=== PATIENT | male | born 1960 | race Caucasian/White ===

== ENCOUNTER 2016-08-11 12:30 | Emergency (ER) | payer OTHER ==
[2016-08-11 13:31] LABS: ABSOLUTE BASOPHILS # (AUTO) 0.1 10^3/uL (0.0-0.2); ABSOLUTE EOSINOPHILS # (AUTO) 0.1 10^3/uL (0.0-0.6); ABSOLUTE LYMPHOCYTES (AUTO) 0.8 10^3/uL (0.5-4.7); ABSOLUTE MONOCYTES (AUTO) 0.6 10^3/uL (0.1-1.4); ABSOLUTE NEUT (AUTO) 9.3 10^3/uL (1.7-8.2); BASOPHILS % (AUTO) 0.7 % (0-2); EOSINOPHILS % (AUTO) 0.7 % (0-6); HEMATOCRIT 39.6 % (37.9-51.0); HEMOGLOBIN 13.5 g/dL (13.5-17.0); HGB HCT DIFFERENCE 0.9; LYMPHOCYTES % (AUTO) 7.1 % (13-45); MEAN CORPUSCULAR HEMOGLOBIN 30.9 pg (27.0-33.4); MEAN CORPUSCULAR HGB CONC 34.1 g/dL (32.0-36.0); MEAN CORPUSCULAR VOLUME 91 fl (80-97); MONOCYTES % (AUTO) 5.3 % (3-13); RED BLOOD COUNT 4.37 10^6/uL (4.35-5.55); RED CELL DISTRIBUTION WIDTH 13.4 % (11.5-14.0); SEGMENTED NEUTROPHILS % (AUTO) 86.2 % (42-78); WHITE BLOOD COUNT 10.8 10^3/uL (4.0-10.5)
[2016-08-11 13:48] LABS: ALANINE AMINOTRANSFERASE 123 U/L (21-72); ALBUMIN 3.9 g/dL (3.5-5.0); ALKALINE PHOSPHATASE 64 U/L (38-126); ANION GAP 8 (5-19); ASPARTATE AMINO TRANSFERASE 51 U/L (17-59); BILIRUBIN,DIRECT 0.3 mg/dL (0.0-0.4); BILIRUBIN,TOTAL 0.5 mg/dL (0.2-1.3); BLOOD UREA NITROGEN 21 mg/dL (7-20); CALCIUM 9.1 mg/dL (8.4-10.2); CARBON DIOXIDE 27 mmol/L (22-30); CHLORIDE 109 mmol/L (98-107); CREATINE KINASE 370 U/L (55-170); CREATININE RESULT 0.78 mg/dL (0.52-1.25); GLUCOSE 118 mg/dL (75-110); POTASSIUM 4.3 mmol/L (3.6-5.0); SODIUM 143.7 mmol/L (137-145); TOTAL PROTEIN 6.8 g/dL (6.3-8.2)
[2016-08-11] MEDS ORDERED: IPRATROPIUM/ALBUTEROL 0.5-2.5 MG/3 ML AMPUL NEB ONE (13:49)
[2016-08-11 14:03] LABS: TROPONIN I < 0.012 ng/mL
[2016-08-11] MEDS ORDERED: NORMAL SALINE 1000 ML 1,000 ML IV ONE (14:05)
--- NOTE | 2016-08-11 14:13 | RADIOLOGY REPORT (SQ) ---
EXAM DESCRIPTION: CHEST PA/LAT COMPLETED DATE/TIME: 08/11/2016 2:06 pm REASON FOR STUDY: cough COMPARISON: 03/17/2009 EXAM PARAMETERS: NUMBER OF VIEWS: two views TECHNIQUE: Digital Frontal and Lateral radiographic views of the chest acquired. RADIATION DOSE: NA LIMITATIONS: none FINDINGS: LUNGS AND PLEURA: No opacities, masses or pneumothorax. No pleural effusion. MEDIASTINUM AND HILAR STRUCTURES: No masses or contour abnormalities. HEART AND VASCULAR STRUCTURES: Heart normal size. No evidence for failure. BONES: No acute findings. HARDWARE: None in the chest. OTHER: No other significant finding. IMPRESSION: NO SIGNIFICANT RADIOGRAPHIC FINDING IN THE CHEST. TECHNICAL DOCUMENTATION: JOB ID: [id number] [employer]- All Rights Reserved
[2016-08-11 14:40] LABS: APPEARANCE,URINE CLEAR; BILIRUBIN,URINE NEGATIVE (NEGATIVE); GLUCOSE, URINE NEGATIVE (NEGATIVE); KETONES,URINE NEGATIVE (NEGATIVE); LEUKOCYTE ESTERASE,URINE NEGATIVE (NEGATIVE); NITRITE,URINE NEGATIVE (NEGATIVE); PROTEIN,URINE 30 mg/dL (NEGATIVE); UROBILINOGEN,URINE NEGATIVE mg/dL (<2.0)
--- NOTE | 2016-08-11 15:41 | ER Document Report ---
ED GI/ - General Chief Complaint: Nausea/Vomiting Stated Complaint: NAUSEA/VOMITING Time Seen by Provider: 08/11/16 13:32 Notes: Patient is a 56-year-old male who presents emergency department after nausea, vomiting, lightheadedness at work today. Patient works on a garbage truck he states that he was working getting up and down on the truck when he had a sudden wave of nausea and vomiting 4. No evidence of blood or coffee-ground emesis. After he threw up he stated she felt weak and came to the emergency department. Any headache, head trauma, light sensitivity, sound sensitivity, dizziness, abdominal pain, constipation or diarrhea, difficulty urinating, chest pain, dyspnea. Past medical history. Recently states that he has had a little bit of a head cold but otherwise feeling well. TRAVEL OUTSIDE OF THE [place] IN LAST 30 DAYS: No - Related Data Allergies/Adverse Reactions: No Known Allergies Allergy (Verified 08/11/16 12:56) Home Medications: Current Home Medications Lisinopril/Hydrochlorothiazide [Lisinopril-Hctz 20-25 mg Tab] 1 each PO DAILY [History] Meloxicam [Meloxicam] 15 mg PO DAILY 08/11/16 [History] Past Medical History - Social History Smoking Status: Former Smoker Chew tobacco use (# tins/day): Yes Frequency of alcohol use: Social Drug Abuse: None Family History: Reviewed & Not Pertinent Patient has suicidal ideation: No Patient has homicidal ideation: No - Past Medical History Cardiac Medical History: Reports: Hx Hypertension Renal/ Medical History: Denies: Hx Peritoneal Dialysis - Immunizations Hx Diphtheria, Pertussis, Tetanus Vaccination: No Review of Systems - Review of Systems Constitutional: No symptoms reported EENT: See HPI Cardiovascular: No symptoms reported Respiratory: No symptoms reported Gastrointestinal: See HPI Neurological/Psychological: See HPI -: Yes All other systems reviewed and negative Physical Exam - Vital signs Vitals: Temp Pulse Resp BP Pulse Ox 98 F 65 16 159/89 H 95 08/11/16 12:42 08/11/16 12:42 08/11/16 12:42 08/11/16 12:42 08/11/16 12:42 - Notes Notes: PHYSICAL EXAM GENERAL: Alert, interacts well. HEAD: Normocephalic, atraumatic. EYES: Pupils equal, round, and reactive to light. Extraocular movements intact. ENT: Oral mucosa moist, tongue midline. NECK: Full range of motion. Supple. Trachea midline. LUNGS: Clear to auscultation bilaterally, no wheezes, rales, or rhonchi. No respiratory distress. HEART: Regular rate and rhythm. No murmurs, gallops, or rubs. ABDOMEN: Soft, nondistended, nontender. No guarding, rebound, or rigidity.. Bowel sounds present in all 4 quadrants. EXTREMITIES: Moves all 4 extremities spontaneously. No edema, radial and dorsalis pedis pulses 2/4 bilaterally. No cyanosis. NEUROLOGICAL: Alert and oriented x4. Normal speech. PSYCH: Normal affect, normal mood. SKIN: Warm, dry, normal turgor. No rashes or lesions noted. Course - Re-evaluation Re-evalutation: 08/11/16 19:49 56-year-old male who is hemodynamic stable, no acute distress and afebrile. Orthostatics negative. Patient did receive 1 L of IV fluids. Received nausea medication. Labs within normal limits. Labs are consistent with the fact the patient has been vomiting with mild dehydration. Creatinine kinase mildly elevated but not indicative of rhabdomyolysis. Patient was initially stable for discharge home but upon discharge from her staff patient following up upon anytime he moved. Patient given IM Compazine and Antivert to treat for possible vertigo. reponded well and discharged home - Vital Signs Vital signs: Temp Pulse Resp BP Pulse Ox 97.6 F 60 12 134/82 H 95 08/11/16 23:15 08/11/16 23:15 08/11/16 23:15 08/11/16 23:15 08/11/16 23:15 - Laboratory Result Diagrams: 08/11/16 13:15 08/11/16 13:15 Laboratory results interpreted by wa: 08/11/16 08/11/16 08/11/16 13:15 13:15 14:10 WBC 10.8 H Plt Count 142 L Seg Neutrophils % 86.2 H Lymphocytes % 7.1 L Absolute Neutrophils 9.3 H Chloride 109 H BUN 21 H Glucose 118 H ALT 123 H Creatine Kinase 370 H Urine Protein 30 H Urine Ascorbic Acid 40 H Discharge - Discharge Clinical Impression: Dehydration, Cough Condition: Good Disposition: HOME, SELF-CARE Instructions: Intravenous (IV) Fluids ([facility]), Dehydration ([facility]) Additional Instructions: Please return to the emergency department if your symptoms do not improve after aggressive fluid hydration and rest for the next 24-48 hours. Please return if your urine turned a dark brown/bloody color. Prescriptions: Albuterol Sulfate [Proair HFA Inhalation Aerosol 8.5 gm MDI] 2 puff IH Q4H PRN # 1 mdi PRN Reason: Meclizine HCl 25 mg PO BIDP PRN 10 Days PRN Reason: Ondansetron [Zofran Odt 4 mg Tablet] 1 - 2 tab PO Q4H PRN #15 tab.rapdis PRN Reason: For Nausea/Vomiting Promethazine HCl [Phenergan 25 mg Tablet] 1 - 2 tab PO Q6H PRN #15 tablet PRN Reason: Forms: Elevated Blood Pressure, Return to Work Referrals: ODETTE HOPKINS MD [ACTIVE STAFF] - Follow up in 1 week
[2016-08-11] MEDS ORDERED: ONDANSETRON 4 MG TAB.RAPDIS PO ONE (16:56)
[2016-08-11] MEDS ORDERED: KETOROLAC TROMETHAMINE 60 MG/2 ML SDV IM ONE (17:53)
[2016-08-11] MEDS ORDERED: PROMETHAZINE HCL 25 MG TABLET PO ONE (17:53)
[2016-08-11] MEDS ORDERED: PROCHLORPERAZINE EDISYLATE INJ 10 MG/2 ML VIAL IM ONE (18:38)
[2016-08-11] MEDS ORDERED: MECLIZINE HCL 25 MG TABLET PO ONE (18:49)
[2016-08-11 23:29] VITALS: BP 134/82
--- NOTE | 2016-08-12 10:02 | EKG REPORT ---
SEVERITY:- NORMAL ECG - SINUS RHYTHM : Confirmed by: Raul Lay 12-Aug-2016 10:01:45
== END 2016-08-11 23:15 | disposition home or self-care (01) ==
LOC: ER 12:30
DX: E86.0 Dehydration (principal); R05 Cough; R11.2 Nausea with vomiting, unspecified; R42 Dizziness and giddiness; R53.1 Weakness; Z72.0 Tobacco use; Z76.0 Encounter for issue of repeat prescription; I10 Essential (primary) hypertension
CPT/HCPCS: 93005; 94640; 99284; 96372; 96360; 82553; 36415; 82550; 85025; 80053; 81001; 84484; 71020; 93010; J1885; S0119; J0780; J7030; J7620

== ENCOUNTER 2019-09-05 18:16 | Emergency (ER) | payer OTHER, BC ==
[2019-09-05 18:37] LABS: ABSOLUTE BASOPHILS # (AUTO) 0.1 10^3/uL (0.0-0.2); ABSOLUTE MONOCYTES (AUTO) 0.8 10^3/uL (0.1-1.4); ABSOLUTE NEUT (AUTO) 7.6 10^3/uL (1.7-8.2); BASOPHILS % (AUTO) 0.7 % (0-2); EOSINOPHILS % (AUTO) 0.1 % (0-6); HEMATOCRIT 41.3 % (37.9-51.0); HEMOGLOBIN 14.1 g/dL (13.5-17.0); LYMPHOCYTES % (AUTO) 10.3 % (13-45); MEAN CORPUSCULAR HEMOGLOBIN 30.9 pg (27.0-33.4); MEAN CORPUSCULAR VOLUME 91 fl (80-97); MONOCYTES % (AUTO) 8.2 % (3-13); PLATELET COUNT 161 10^3/uL (150-450); RED BLOOD COUNT 4.55 10^6/uL (4.35-5.55); RED CELL DISTRIBUTION WIDTH 13.4 % (11.5-14.0); SEGMENTED NEUTROPHILS % (AUTO) 80.7 % (42-78); TOTAL CELLS COUNTED % (AUTO) 100 %; WHITE BLOOD COUNT 9.4 10^3/uL (4.0-10.5)
[2019-09-05 19:02] LABS: ALBUMIN 4.3 g/dL (3.5-5.0); ALKALINE PHOSPHATASE 59 U/L (38-126); ANION GAP 8 (5-19); ASPARTATE AMINO TRANSFERASE 24 U/L (17-59); BILIRUBIN,TOTAL 0.6 mg/dL (0.2-1.3); BLOOD UREA NITROGEN 31 mg/dL (7-20); CALCIUM 9.5 mg/dL (8.4-10.2); CARBON DIOXIDE 27 mmol/L (22-30); CHLORIDE 107 mmol/L (98-107); CREATINE KINASE 205 U/L (55-170); GLUCOSE 125 mg/dL (75-110); POTASSIUM 3.6 mmol/L (3.6-5.0)
[2019-09-05 19:14] LABS: CREATINE KINASE MB 1.56 ng/mL (<4.55)
[2019-09-05 19:15] LABS: TROPONIN I < 0.012 ng/mL
[2019-09-05] MEDS ORDERED: NORMAL SALINE 1000 ML 1,000 ML IV ONE (19:17)
--- NOTE | 2019-09-05 19:19 | ER Document Report ---
ED General - General Chief Complaint: Syncope Stated Complaint: SYNCOPE Time Seen by Provider: 09/05/19 18:43 Mode of Arrival: Medic Information source: Patient TRAVEL OUTSIDE OF THE [place] IN LAST 30 DAYS: No - HPI Onset: This afternoon Onset/Duration: Gradual Quality of pain: No pain Severity: Moderate Pain Level: Denies Associated symptoms: Other - Dizziness, light headedness, syncope Exacerbated by: Walking, Other - standing up too quickly Relieved by: Denies Similar symptoms previously: Yes - once in the past from dehydration/heat exhaustion Recently seen / treated by doctor: No Notes: 59 year old male with a history of hypertension brought to the ER by EMS for dizziness and passing out while working in the heat. 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 The patient was going to get in a different work truck when he became very dizzy and nearly fell completely over (a co worker caught him). EMS gave the the patient 1L of fluids and 4mg of Zofran prior to patient arrival to the ER. The patient says he is feeling better but he still feels weak. - Related Data Allergies/Adverse Reactions: No Known Allergies Allergy (Verified 08/11/16 12:56) Home Medications: lisinopril Past Medical History - General Information source: Patient - Social History Smoking Status: Never Smoker Frequency of alcohol use: Occasional Drug Abuse: None Family History: Reviewed & Not Pertinent Patient has suicidal ideation: No Patient has homicidal ideation: No - Past Medical History Cardiac Medical History: Reports: Hx Hypertension Renal/ Medical History: Denies: Hx Peritoneal Dialysis - Immunizations Hx Diphtheria, Pertussis, Tetanus Vaccination: No Review of Systems - Review of Systems Constitutional: Weakness EENT: No symptoms reported Cardiovascular: Syncope, Dizziness, Lightheaded Respiratory: No symptoms reported Gastrointestinal: No symptoms reported Genitourinary: No symptoms reported Male Genitourinary: No symptoms reported Musculoskeletal: No symptoms reported Skin: No symptoms reported Hematologic/Lymphatic: No symptoms reported Neurological/Psychological: No symptoms reported -: Yes All other systems reviewed and negative Physical Exam - Vital signs Vitals: Resp Pulse Ox 15 96 09/05/19 18:25 09/05/19 18:25 - Notes Notes: GENERAL: Well-appearing, well-nourished and in no acute distress. HEAD: Atraumatic, normocephalic. EYES: Pupils equal round and reactive to light, extraocular movements intact, sclera anicteric, conjunctiva are normal. ENT: External ears normal, nares patent, oropharynx clear without exudates. Moist mucous membranes. NECK: Normal range of motion, supple without lymphadenopathy or JVD. LUNGS: Breath sounds clear to auscultation bilaterally and equal. No wheezes rales or rhonchi. HEART: Regular rate and rhythm without murmurs, rubs or gallops. ABDOMEN: Soft, nontender, normoactive bowel sounds. No guarding, no rebound. No masses appreciated. EXTREMITIES: Normal range of motion, no pitting or edema. No clubbing or cyanosis. NEUROLOGICAL: Cranial nerves II through XII grossly intact. Normal speech, normal gait. PSYCH: Normal mood, normal affect. SKIN: Warm, Dry, normal turgor, no rashes or lesions noted. Course - Re-evaluation Re-evalutation: 09/05/19 21:33 The patient arrived from nearly passing completely out while working in the heat. The patient sounds like he had moderate heat exahustion. The patient ws given 1L of fluids by EMS and another liter of fluids in the ER. The patient was Orthostatic on ER arrival which fits with being dehydrated. The patient felt better after treatment in the ER and he was tolerating POs and ambulating on his own prior to discharge. Patient told to orally hydrate in the days to come and to be mindful of his fluid intake when working in the heat. - Vital Signs Vital signs: Temp Pulse Resp BP Pulse Ox 97.7 F 80 14 129/70 H 97 09/05/19 18:27 09/05/19 18:57 09/05/19 20:01 09/05/19 20:01 09/05/19 20:01 - Laboratory Result Diagrams: 09/05/19 18:18 09/05/19 18:18 Laboratory results interpreted by ky: 09/05/19 09/05/19 09/05/19 18:18 18:18 19:09 Lymph % (Auto) 10.3 L Seg Neutrophils % 80.7 H BUN 31 H Creatinine 1.52 H Est GFR ( Amer) 57 L Est GFR (MDRD) Non-Af 47 L Glucose 125 H Creatine Kinase 205 H Urine Protein 100 H Urine Ascorbic Acid 20 H - EKG Interpretation by Ma EKG shows normal: Sinus rhythm, Intervals, QRS Complexes Rate: Normal Counselor/QRS: Left axis deviation When compared to previous EKG there are: No significant change Additional EKG results interpreted by me: 09/05/19 19:19 T wave inversions in inferior leads Discharge - Discharge Clinical Impression: Dehydration Heat exhaustion Qualifiers: Encounter type: initial encounter Qualified Code(s): T67.5XXA - Heat exhaustio n, unspecified, initial encounter Condition: Stable Disposition: HOME, SELF-CARE Instructions: Dehydration ([facility]), Heat Exhaustion ([facility]) Additional Instructions: Drink plenty of fluids in the days to come. Be sure to especially drink plenty of fluids when working in the heat. Follow up with a primary care doctor and tell him/her about your ER visit today.
[2019-09-05 20:32] LABS: APPEARANCE,URINE SLIGHTLY-CLOUDY; BILIRUBIN,URINE NEGATIVE (NEGATIVE); COLOR,URINE YELLOW; GLUCOSE, URINE NEGATIVE (NEGATIVE); KETONES,URINE NEGATIVE (NEGATIVE); LEUKOCYTE ESTERASE,URINE NEGATIVE (NEGATIVE); NITRITE,URINE NEGATIVE (NEGATIVE); PROTEIN,URINE 100 mg/dL (NEGATIVE); URINE SPECIFIC GRAVITY 1.026; UROBILINOGEN,URINE NEGATIVE mg/dL (<2.0)
[2019-09-05 23:01] VITALS: BP 130/78
--- NOTE | 2019-09-06 10:03 | EKG REPORT ---
SEVERITY:- ABNORMAL ECG - SINUS RHYTHM PROBABLE POSTERIOR INFARCT BORDERLINE T ABNORMALITIES, INFERIOR LEADS : Confirmed by: Raul Lay 06-Sep-2019 10:01:59
== END 2019-09-05 23:01 | disposition home or self-care (01) ==
LOC: ER 18:16
DX: E86.0 Dehydration (principal); R55 Syncope and collapse; T67.5XXA Heat exhaustion, unspecified, initial encounter; X30.XXXA Exposure to excessive natural heat, initial encounter; Y99.0 Civilian activity done for income or pay; R42 Dizziness and giddiness; R53.1 Weakness; I10 Essential (primary) hypertension
CPT/HCPCS: 93005; 99284; 96360; 96361; 36415; 82553; 82550; 85025; 80053; 81001; 84484; 93010; J7030